=== PATIENT | male | born 1945 | race Caucasian/White ===

== ENCOUNTER 2022-09-04 06:28 | Day surgery (SDC) | payer BC, MEDICARE ==
[2022-09-04] MEDS ORDERED: Lactated Ringers 1,000 ML IV SCH (07:00)
[2022-09-04] MEDS ORDERED: fentaNYL 50 MCG/ML SDV ONE (07:01)
[2022-09-04] MEDS ORDERED: Propofol 200 MG/20 ML SDV ONE ×2 (07:01→08:07)
[2022-09-04] MEDS ORDERED: Sodium Chloride 0.9% 1,000 ML IV SCH (07:15)
[2022-09-04] MEDS ORDERED: Dexamethasone 4 MG/ML SDV ONE (08:12)
[2022-09-04] MEDS ORDERED: Ondansetron 4 MG/2 ML SDV ONE (08:12)
== END 2022-09-04 09:45 | disposition home or self-care (01) ==
LOC: JP.SDS 06:28
PROVIDERS: ATTEND Family Medicine
DX: Z12.11 Encounter for screening for malignant neoplasm of colon (principal); K57.30 Diverticulosis of large intestine without perforation or abscess without bleeding; D12.5 Benign neoplasm of sigmoid colon; D12.3 Benign neoplasm of transverse colon; I10 Essential (primary) hypertension; E66.9 Obesity, unspecified; E78.00 Pure hypercholesterolemia, unspecified; Z98.890 Other specified postprocedural states; Z86.010 Personal history of colon polyps; Z79.899 Other long term (current) drug therapy; Z68.36 Body mass index [BMI] 36.0-36.9, adult
CPT/HCPCS: 45380; 88305; J1100; J2405; J2704; J7030; J3010

== ENCOUNTER 2022-10-07 17:03 | Emergency (ER) | payer MEDICARE ==
[2022-10-07] MEDS ORDERED: Aspirin 81 MG Tab.Chew PO ONE (17:37)
[2022-10-07 18:20] LABS: TROPONIN I HIGH SENSITIVITY 10.3 pg/mL (<=60.3)
== END 2022-10-07 18:43 | disposition home or self-care (01) ==
LOC: JP.ED 17:03
DX: I20.9 Angina pectoris, unspecified (principal); E78.00 Pure hypercholesterolemia, unspecified; I10 Essential (primary) hypertension; E78.5 Hyperlipidemia, unspecified; M19.90 Unspecified osteoarthritis, unspecified site; E66.9 Obesity, unspecified; Z68.35 Body mass index [BMI] 35.0-35.9, adult; Z79.82 Long term (current) use of aspirin; Z79.899 Other long term (current) drug therapy; Z86.16 Personal history of COVID-19
CPT/HCPCS: 36415; 80048; 83880; 84484; 85025; 85610; 85730; 99285; A9270